=== PATIENT | male | born 1955 ===

== ENCOUNTER → 2022-12-23 12:27 | Outpatient (CLI) | payer BC, SELFPAY | PROVIDERS: Visit Provider Urology | DX: N41.9 Inflammatory disease of prostate, unspecified (principal); R39.9 Unspecified symptoms and signs involving the genitourinary system; R82.81 Pyuria; R30.0 Dysuria; Z87.898 Personal history of other specified conditions | CPT/HCPCS: 51798; 81002; 87086 ==